=== PATIENT | female | born 2000 | race Caucasian/White ===

== ENCOUNTER 2019-07-01 11:35 | Emergency (ER) | payer BC, OTHER ==
[2019-07-01] MEDS ORDERED: RANITIDINE HCL 50 MG in 0.9 % SODIUM CHLORIDE 100ML 100 ML IVPB ONE (11:44)
[2019-07-01] MEDS ORDERED: DIPHENHYDRAMINE HCL 50 MG/ML VIAL IVP ONE (11:44)
[2019-07-01] MEDS ORDERED: METHYLPREDNISOLONE PF 125MG/VIAL IVP ONE (11:44)
--- NOTE | 2019-07-01 11:52 | Emergency Department Record ---
History of Present Illness - General Chief complaint: Allergic Reaction Stated complaint: ALLERGIC REACTION Time Seen by Provider: 07/01/19 11:44 Source: Patient Mode of Arrival: Ambulatory Limitations: No limitations - History of Present Illness Initial Comments: 18 yo female presents with a concern about an allergic reaction. She states soon after eating a bowel of oatmeal she developed a feeling of tightness in her throat. She does have a nut allergy but no history of anaphyaxis. No hives, voice changes, nausea, vomiting, swelling. No cough or shortness of breath. 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 Her PCP and Drill Doctor is in [place]. Complaint: Allergic reaction Onset/Timin -: Minutes(s) Exposure: Food Symptoms: Other Severity: Mild Treatment Prior to Arrival: None Previous Allergy History: None - Related Data Previous Rx's Medication Instructions Recorded Diphenhydramine HCl [Benadryl] 25 mg PO Q6H #20 cap 07/01/19 Prednisone [Prednisone 20Mg] 20 mg PO BID #10 tab 07/01/19 Ranitidine HCl [Zantac] 150 mg PO BID #20 tablet 07/01/19 Allergies Allergy/AdvReac Type Severity Reaction Status Date / Time tree nut Allergy SWELLING Verified 07/01/19 11:40 (GENERAL) Travel Screening - Travel/Exposure Within Last 30 Days Have you traveled within the last 30 days?: No Review of Systems Constitutional: Denies: Chills, Fever, Malaise, Weakness Eyes: Denies: Eye discharge ENT: Reports: Other. Denies: Congestion, Throat pain Respiratory: Denies: Cough, Dyspnea, Hemoptysis, Stridor, Wheezes Cardiovascular: Denies: Chest pain, Palpitations, Syncope Endocrine: Denies: Fatigue Gastrointestinal: Denies: Abdominal pain, Diarrhea, Nausea, Vomiting Genitourinary: Denies: Dysuria, Urgency Musculoskeletal: Denies: Arthralgia, Back pain, Myalgia Skin: Denies: Bruising, Change in color, Rash Neurological: Denies: Headache, Numbness, Weakness Psychiatric: Denies: Anxiety Hematological/Lymphatic: Denies: Easy bruising, Swollen glands Past Medical History - SOCIAL HISTORY Smoking Status: Never smoker Alcohol Use: None Drug Use: None - RESPIRATORY Hx Respiratory Disorders: No - CARDIOVASCULAR Hx Cardio Disorders: No - NEURO Hx Neuro Disorders: No - GI Hx GI Disorders: No - Hx Genitourinary Disorders: No - ENDOCRINE Hx Endocrine Disorders: No - MUSCULOSKELETAL Hx Musculoskeletal Disorders: No - PSYCH Hx Psych Problems: No - HEMATOLOGY/ONCOLOGY Hx Hematology/Oncology Disorders: No Family Medical History Any Significant Family History?: No Physical Exam - General General Appearance: Alert, Oriented x3, Cooperative, No acute distress Limitations: No limitations - Head Head exam: Atraumatic, Normal inspection - Eye Eye exam: Normal appearance, PERRL. negative: Conjunctival injection, Scleral icterus - ENT ENT exam: Normal exam, Mucous membranes moist, Normal orophraynx. negative: Mucous membranes dry Ear exam: Normal external inspection Nasal Exam: Normal inspection Mouth exam: Normal external inspection. negative: Drooling, Muffled voice, Tongue elevation, Tongue normal, Trismus Teeth exam: Normal inspection Throat exam: Normal inspection. negative: Tonsillar erythema, Tonsillomegaly, Tonsillar exudate, R peritonsillar mass, L peritonsillar mass - Neck Neck exam: Normal inspection, Full ROM. negative: Lymphadenopathy, Meningismus, Tenderness, Thyromegaly - Respiratory Respiratory exam: Normal lung sounds bilaterally. negative: Respiratory distress, Rhonchi, Stridor, Wheezes - Cardiovascular Cardiovascular Exam: Regular rate, Normal rhythm, Normal heart sounds - GI/Abdominal GI/Abdominal exam: Soft. negative: Tenderness - Rectal Rectal exam: Deferred - exam: Deferred - Extremities Extremities exam: Normal inspection. negative: Pedal edema, Tenderness - Back Back exam: Denies: CVA tenderness (R), CVA tenderness (L) - Neurological Neurological exam: Alert, Oriented X3 - Psychiatric Psychiatric exam: Normal affect, Normal mood - Skin Skin exam: Dry, Intact, Normal color, Warm. negative: Abrasion, Cyanosis, Diaphoretic, Mottled, Urticaria, Vesicles Course Vital Signs 07/01/19 11:41 Temperature 98.2 F Pulse Rate [ 100 H Pulse Ox Probe] Respiratory 22 Rate Blood Pressure 136/88 [Left Arm] Pulse Ox 100 - Reevaluation(s) Reevaluation #1: 07/01/19 11:49 The patient appears relaxed and comfortable Clear voice. No physical findings to suggest significant reaction at this time 07/01/19 12:14 On recheck the patient is doing very well. No current symptoms. Will continue to observe. 07/01/19 12:27 Doing well, no symptoms, relaxed. HR 82 07/01/19 12:41 The patient remains asymptomatic. HR 80 We discussed home care, throwing away the oat meal she bought, reasons to return and follow up with her PCP and her oil field caser Disposition Disposition: Discharge Clinical Impression: Food allergy Disposition: Home, Self-Care Condition: (1) Good Instructions: Food Allergy (ED) Additional Instructions: Call your doctor for the next available follow up appointment Return to the ER for a recheck if worse, any new concerns or questions Take the prescriptions provided as directed Prescriptions: Diphenhydramine HCl [Benadryl] 25 mg PO Q6H #20 cap Prednisone [Prednisone 20Mg] 20 mg PO BID #10 tab Ranitidine HCl [Zantac] 150 mg PO BID #20 tablet Forms: Patient Portal Access Time of Disposition: 12:42 Quality - Quality Measures Quality Measures: N/A - Blood Pressure Screening Does Patient Have Any of the Following: No Blood Pressure Classification: Pre-Hypertensive BP Reading Systolic Measurement: 136 Diastolic Measurement: 88 Screening for High Blood Pressure: < Pre-Hypertensive BP, F/U Documented > [G8950] Pre-Hypertensive Follow-up Interventions: Referral to alternative/primary care provider.
== END 2019-07-01 13:15 | disposition home or self-care (01) ==
LOC: ER 11:35
DX: R07.0 Pain in throat (principal); T78.1XXA Other adverse food reactions, not elsewhere classified, initial encounter; Z91.018 Allergy to other foods
CPT/HCPCS: 96365; 96375; 99284; J1200; J2780; J2930